=== PATIENT | male | born 1965 | race Caucasian/White ===

== ENCOUNTER 2016-12-29 07:28 | Emergency (ER) | payer SELFPAY ==
[~2016-12-29 07:28] MED LIST: CEPHALEXIN500 M1 PO; IBU-200200 MG PO; LISINOPRIL20 MG PO; NORCO 325 MG-7.1 TAB PO; SYNTHROID0.075 MG PO
[2016-12-29 07:30] VITALS: BP 177/122
[2016-12-29] MEDS ORDERED: ASPIRIN E.C. 8181 MG PO (07:32)
== END 2016-12-29 08:13 | disposition left against medical advice (07) ==
LOC: ED 07:28
DX: M25.511 Pain in right shoulder (principal); M54.2 Cervicalgia